=== PATIENT | female | born 1985 | race Caucasian/White ===

== ENCOUNTER 2016-09-13 16:33 | Inpatient (IN) | payer MEDICAID ==
[2016-09-13] MEDS ORDERED: Acetaminophen 325 MG Tab PO PRN (19:20)
[2016-09-13] MEDS ORDERED: Ondansetron 4 MG/2 ML SDV IV PRN (19:20)
[2016-09-13] MEDS ORDERED: Lidocaine 1% 30 ML SDV INJECT PRN (19:20)
[2016-09-13] MEDS ORDERED: Methylergonovine 0.2 MG/1 ML Amp IM PRN (19:20)
[2016-09-13] MEDS ORDERED: Misoprostol 400 MCG (4 X 100 MCG TAB) RECTAL PRN (19:20)
[2016-09-13] MEDS ORDERED: Lactated Ringers 500 ML IV ONE (19:20)
[2016-09-13] MEDS ORDERED: Sodium Chloride 0.9% 10 ML Syringe FLUSH PRN (19:20)
[2016-09-13] MEDS ORDERED: Carboprost Tromethamine 250 MCG/1 ML Amp IM PRN (19:20)
[2016-09-13] MEDS ORDERED: Oxytocin/Normal Saline 30 UNIT/500 ML BAG IV SCH (19:45)
[2016-09-13] MEDS: Lactated Ringers 1,000 ML IV SCH (20:00)
--- NOTE | 2016-09-14 00:29 | PCM.SN ---
- Free Text/Narrative Note: Intrathecal. Sitting position, sterile prep and drape, 1% lidocaine w bicarb for skinwheal to L2 L3 interspace. Introducer, 24 ga pencan x 1. Pos CSF, neg heme, neg parasthesia. 15 mcg pf sufenta, 35 mcg pf fentanyl, 0.4 ml pf ns and 6 mg of 0.75% pf bupivacaine injected aftewr CSF aspiration. Pt to R lateral side. Procedure time 2355 to 0020
[2016-09-14] MEDS: Lactated Ringers 1,000 ML IV SCH ×2 (01:04)
[2016-09-14] MEDS ORDERED: Zolpidem 5 MG Tab PO PRN (04:15)
[2016-09-14] MEDS ORDERED: Simethicone 80 MG Tab.Chew PO PRN (04:15)
[2016-09-14] MEDS ORDERED: Sodium Chloride 0.9% 10 ML Syringe FLUSH PRN (04:15)
[2016-09-14] MEDS ORDERED: Oxytocin 10 Units/1 ML SDV IM PRN (04:15)
[2016-09-14] MEDS ORDERED: Benzocaine/Menthol 20%-0.5% Spray 56 GM Canister TOP PRN (04:15)
[2016-09-14] MEDS ORDERED: Measles, Mumps & Rubella Vaccine 0.5 ML SDV SUBCUT ONE (04:15)
--- NOTE | 2016-09-14 09:15 | HP ---
PATIENT IDENTIFICATION: Galina Bethea is a 31-year-old, G3, P1-1-0-2 intrauterine 37-4/7 weeks by 6-5/7-week ultrasound, who presents with contractions. HISTORY OF PRESENT ILLNESS: Patient's contractions started at approximately 4:30-5:00 p.m. on date of admit, increasing in frequency and intensity to the point that they are felt every 2 minutes at their closest, rated 8/10, felt in the lower abdomen and radiating to the back. They seem to be getting worse over time. Nothing seems to make them better. She denies any headaches, visual changes, or upper abdominal pain. To put this in context, she is GBS negative, has had a history of labor and delivery as well as gestational thrombocytopenia during this . Records were called for and reviewed as below and supplemented by patient history. OBSTETRICS HISTORY: 1. On 11/02/2012, delivered at 36-5/7 weeks, labor, yielding a male weighing 2530 g. 2. On 12/07/2011, at 39 weeks, delivered 2722 g male, spontaneous vaginal delivery with thrombocytopenia complicating this . ANTEPARTUM LABS: ABO blood type O positive, negative antibody. Rubella equivocal/nonimmune. RPR nonreactive. Negative hepatitis B surface antigen. Negative HIV, GC, chlamydia, hep C, with 1 hour GTT being 200 on 08/01/2016, with 3-hour testing being negative for gestational diabetes mellitus. Quad screen was felt to be within normal limits with a risk of Down syndrome being 1/820. GBS was negative on 08/28/2016, with platelets the same day being 180,000. ALLERGIES: Listed as none. MEDICATIONS: Supposed to be on vitamins. PAST MEDICAL/PAST SURGICAL HISTORY: Reviewed and remarkable for wisdom teeth extraction. Cervical dysplasia with HSIL in 2006, headaches in the past, ankle fracture in the past. Currently smoking. History of chickenpox in the past with blood type O positive with depression in the past and history of Mirena IUD back in 2012, not present during this . FAMILY HISTORY: Paternal grandfather and father with diabetes. Heart defect in mother with aortic valve replaced. Hypertension in father. SOCIAL HISTORY: They live in [place] in a house. She has worked at [employer] in the past during the day shift with her significant other, Chucho Haro, since 2008. They live together and parent their 2 sons together. No alcohol use. Unsure LMP. No drug use. REVIEW OF SYSTEMS: Negative for headaches, visual changes, or upper abdominal pain. Otherwise, reviewed and felt to be noncontributory. Please see nurse's notes as well. OBJECTIVE: Vital Signs: Initial blood pressure 137/91 with a heart rate 80, temperature 98.6, recheck blood pressure is 129/88 with a heart rate of 88 and she just had a recent blood pressure with 130s over 80s. Appearance: Female appears stated age, acting appropriate for age, nontoxic appearance. Breathing through contractions, but answering questions appropriately in between. HEENT: Head atraumatic. EOMs intact. PERRLA. No scleral icterus. No obvious otorhinorrhea. Mucous membranes are moist. Patient wearing glasses. Neck: No obvious masses or lesions. Lungs: Clear to auscultation bilaterally. No increased work of breathing. Heart: S1 and S2. Regular rate and rhythm. Abdomen: Gravid, Raul's indeterminate. Nontender. Nondistended. Bowel sounds positive. No organomegaly, pulsatile masses, or obvious are hernias. No rebound or guarding. Monitors applied. : Normal external female genitalia. Normal position and presentation of urethra. Vaginal exam reveals her to be 3 cm, -2 to -3 station. Unsure presentation with bag of water felt, being 60% effaced. No peripheral edema. Deep tendon reflexes 3-4/4 in bilaterally in lower extremities. Psych: Mood and affect congruent. Judgment and insight intact. Skin: No cyanosis, clubbing, or jaundice. LABORATORY DATA: Pending is a CBC, BUN, creatinine, uric acid, AST, ALT, urinalysis with urine protein-creatinine ratio. NST was found to be reactive and reassuring. Tocometer reveals contractions as close as every 2-5 minutes apart. ASSESSMENT AND PLAN: 1. Intrauterine at 37-4/7 weeks by 6-5/7-week ultrasound. 2. Gestational hypertension-suspected. We will rule out preeclampsia with labs. 3. Contractions with cervical change-labor. 4. Unsure presentation. At this point in time, as ultrasound is unavailable, unable to save images, we will order an abdominal x-ray. I did discuss this with the patient pitfalls of using this as well as risks, benefits, alternatives, complications in regard to finding the presentation. She understands and agrees and wished to proceed. 5. Group B Streptococcus negative. 6. Rubella nonimmune. 7. History of gestational thrombocytopenia. Last platelet count was within normal limits. CBC will be drawn today. 8. History of labor and delivery. 9. Impaired glucose tolerance with negative 3 hour GTT. 10. 3, para 1-1-0-2. PLAN: The patient will be admitted due to the above. We will wait the abdominal x-ray and readings for presentation. If vertex, most likely we will continue to follow clinically and closely, may consider amniotomy with further descent of baby and follow clinically and closely thereafter. Also discussed potential for Pitocin or other modifications that may be used. Also did discuss if baby is not vertex, may need to consider section for delivery. The patient understands and agrees with the above treatment plan. [facility] /[id number]
--- NOTE | 2016-09-14 09:35 | PN ---
DATE: 09/13/2016 SUBJECTIVE: The patient's contractions are getting worse, they are now 7 to 8/10, felt in the abdomen and lower back. Pitocin was started and stopped shortly thereafter due to some concerns with heart tones. OBJECTIVE: Currently, heart tones are in the 130 to 135 range with great acceleration noted with vaginal exam. Tocometer reveals contractions every 2 to 5 minutes apart. Vaginal exam reveals her to be 5 cm, 80% effaced, -1 to -2 station, vertex suspected, bag of water felt. Abdominal x-ray did reveal suspected vertex presentation as well. ASSESSMENT AND PLAN: Intrauterine at 37-1/2 weeks complicated by gestational hypertension versus preeclampsia. Labs done with unsure presentation initially. Now by exam, reveals suspected vertex and abdominal x- ray confirms this. Initially, there was some nonreassuring status per nurse with some occasional late decelerations. Pitocin was stopped. IV fluids were started. Position changes were instituted as well as oxygen started. Resolution of these are noted currently at the time of dictation. PLAN: I did discuss with the patient following very closely with continuous monitoring at this point in time. I would consider re-evaluation in 1 to 2 hours. If there are no concerns, then consider amniotomy at that time if there is any evidence of no progression of labor. Otherwise, we will continue to follow clinically and closely. The patient understands and agrees with the above treatment plan. [facility] /[id number]
[2016-09-14] MEDS: Prenatal Multivitamin with Calcium/Folic Acid/Iron Tab PO SCH (09:40)
[2016-09-14] MEDS: Docusate Sodium 100 MG Cap PO PRN ×2 (09:40→20:13)
--- NOTE | 2016-09-14 09:44 | PN ---
DATE: 09/14/2016 SUBJECTIVE: The patient is pain free after status post intrathecal. OBJECTIVE: heart tones have been in the 135 to 140 range, felt to be reassuring. Tocometer reveals contractions every 2 to 5 minutes. Vaginal exam reveals to be 5 cm, 85% effaced, -1 station, vertex suspected. Artificial rupture of membranes done after discussion with the patient yielding copious amounts of clear fluid. LABORATORY DATA: Labs returned. Platelet count is notable to be 125,000. Urine yoaakbk-[id number] ratio at 0.6. ASSESSMENT AND PLAN: Intrauterine at 37-4/7 weeks by 6-5/7 weeks ultrasound, complicated by now newly diagnosed preeclampsia with mild thrombocytopenia but not in the severe range, status post intrathecal as well as Pitocin augmentation that was used minimally on 09/13/2016, and stopped after concerns with heart tones. PLAN: We will continue to follow maternal status closely. May need to augment with Pitocin based on maternal status and cervical change and contraction pattern. This was discussed with the patient. We will continue to follow clinically and closely. Otherwise, no signs or symptoms of severe preeclampsia elicited at the current time of dictation. [facility] /[id number]
--- NOTE | 2016-09-14 10:23 | DEL ---
DATE: 09/14/2016 PREOPERATIVE DIAGNOSES: 1. Intrauterine at 37-5/7 weeks by 6-5/7 weeks' ultrasound. 2. Preeclampsia. 3. Contractions with cervical change-labor. 4. Unsure presentation, requiring abdominal x-ray as ultrasound unavailable. 5. Group B Streptococcus negative. 6. Rubella nonimmune. 7. Gestational thrombocytopenia with platelets of 125,000 upon admit. 8. Impaired glucose tolerance. 9. History of labor and delivery. 10.History of gestational thrombocytopenia with previous delivery. 11. 3, para 1-1-0-2. POSTOPERATIVE DIAGNOSES: 1. Intrauterine at 37-5/7 weeks by 6-5/7 weeks' ultrasound- delivered. 2. Preeclampsia. 3. Contractions with cervical change-labor. 4. Unsure presentation, requiring abdominal x-ray as ultrasound unavailable. 5. Group B Streptococcus negative. 6. Rubella nonimmune. 7. Gestational thrombocytopenia with platelets of 125,000 upon admit. 8. Impaired glucose tolerance. 9. History of labor and delivery. 10.History of gestational thrombocytopenia with previous delivery. 11. 3, para 1-1-0-2. 12.Left occiput presentation with left hand by right cheek. PROCEDURE PERFORMED: NST and Pitocin augmentation on 09/13/2016, followed by continued Pitocin augmentation, artificial rupture of membranes and spontaneous vaginal delivery on 09/14/2016. ANESTHESIA/ANALGESIA: The patient did receive an intrathecal in the first stage of labor. ESTIMATED BLOOD LOSS: 350 mL. FINDINGS: Male, scores 9 and 9, weight pending. SUMMARY OF EVENTS: The patient is a 31-year-old, G3, P1-1-0-2, intrauterine at 37-4/7 weeks upon admission, had gestational hypertension with labs revealing that she had preeclampsia thereafter with thrombocytopenia with platelets of 125,000. She underwent the above procedures, required some minimal Pitocin augmentation, had some nonreassuring status. This was stopped. IV fluids and oxygen and position changes ensued with improvement in heart tones. Subsequently, the patient received an intrathecal shortly thereafter, had artificial rupture membranes as she had a protracted disorder dilation at that time. She was checked serially by nurses and had protracted disorder of dilation being around 5-6 cm, subsequently Pitocin was called for and started again. She subsequently rapidly progressed into the second stage of labor, I was called to the room. I, Raj Markhamman, then donned sterile gown and gloves upon arrival into the room. Subsequently, the patient pushed with contractions, vertex was delivered in a JODI presentation with left hand by right cheek. The rest of the infant followed with delivery thereafter without difficulty. Mouth and nares were suctioned. Cord was doubly clamped and cut, and infant was resuscitated on mother's abdomen. Then, approximately 10 cc of cord blood was obtained for labs. Placenta then delivered with gentle cord traction and fundal massage. Pitocin was started per protocol. Perineum, vagina, and perirectal areas were then examined without any tears or lacerations. Mother and infant are currently stable at the time of dictation. [facility] /[id number]
--- NOTE | 2016-09-14 10:32 | OBOUT ---
DATE: 09/13/2016 DATE AND TIME OF NST: DATE: 09/13/2016 TIME: 1704 to 1724. REASON FOR NST: 1. Intrauterine at 37-4/7 weeks by 6-5/7 weeks' ultrasound. 2. Gestational hypertension. 3. Contractions with cervical change-labor suspected. 4. Unsure presentation. 5. Group B Streptococcus negative. 6. Rubella nonimmune. 7. History of gestational thrombocytopenia. 8. History of labor and delivery. 9. 3, para 1-1-0-2. NST INTERPRETATION: During this time period, heart tone baseline is approximately 145-150 and there are at least two 15 x 15 beat per minute accelerations, making this strip reactive. It is also noted to be reassuring. Tocometer reveals potential of 8-9 contractions during this time period felt by patient. ASSESSMENT/PLAN: 1. Non-stress test-reactive and reassuring. 2. Tocometer with contractions. PLAN: Patient was watched for approximately 2 hours after this NST was performed, as she had some elevated blood pressures upon admission. She continued to have some minimally elevated blood pressures occasionally and intermittently with contractions continuing. She did have some noted cervical change being 3 cm, 60% effaced, -2 to -3 station with unsure presentation. Subsequently, as ultrasound is not available today, abdominal x-ray has been called for. I did discuss with patient the risks, benefits, alternatives, complications with use of this procedure to evaluate for presentation and pitfalls were also discussed. We will check this x-ray for presentation and admit the patient due to her gestational hypertension suspected with history of thrombocytopenia as well as history of labor and delivery with contractions with cervical change being at 37-4/7 weeks. The patient understands and agrees with the above treatment plan. Please see admit history and physical for further details. [facility] /[id number]
[2016-09-14] MEDS: Ibuprofen 800 MG Tab PO PRN ×2 (11:11→20:13)
[2016-09-14] MEDS ORDERED: fentaNYL 100 MCG/2 ML SDV IV ONE (12:49)
[2016-09-14] MEDS: Acetaminophen/oxyCODONE 325-5 MG Tab PO PRN (20:13)
[2016-09-15] MEDS: Acetaminophen/oxyCODONE 325-5 MG Tab PO PRN ×2 (00:05→04:24)
[2016-09-15] MEDS: Ibuprofen 800 MG Tab PO PRN (04:23)
[2016-09-15] MEDS: Docusate Sodium 100 MG Cap PO PRN (09:00)
[2016-09-15] MEDS: Prenatal Multivitamin with Calcium/Folic Acid/Iron Tab PO SCH (09:00)
[2016-09-15 10:06] VITALS: BP 126/85
--- NOTE | 2016-09-18 08:50 | DISCH ---
ADMISSION DIAGNOSES: 1. Intrauterine at 37-4/7 weeks by 6-5/7 weeks. 2. Preeclampsia. 3. Contractions with cervical change-labor. 4. Unsure presentation, requiring abdominal x-ray as ultrasound was unavailable. 5. Group B Streptococcus negative. 6. Rubella nonimmune. 7. History of gestational thrombocytopenia. 8. History of labor and delivery. 9. Impaired glucose tolerance. 10.Gestational thrombocytopenia with platelets of a 125,000 upon admit. 11. 3, para 1-1-0-2. DISCHARGE DIAGNOSES: 1. Intrauterine at 37-4/7 weeks by 6-5/7 weeks-delivered at 37-5/7 weeks. 2. Preeclampsia. 3. Contractions with cervical change-labor. 4. Unsure presentation, requiring abdominal x-ray as ultrasound was unavailable. 5. Group B Streptococcus negative. 6. Rubella nonimmune. 7. History of gestational thrombocytopenia. 8. History of labor and delivery. 9. Impaired glucose tolerance. 10.Gestational thrombocytopenia with platelets of a 125,000 upon admit. 11. 3, para 1-1-0-2. PROCEDURE PERFORMED: NST, Pitocin augmentation, artificial rupture of membranes, spontaneous vaginal delivery per Dr. Dodd. HISTORY OF PRESENT ILLNESS: Please see H and P. HOSPITAL COURSE: Patient was admitted on the above date with the above diagnoses. As unsure presentation with ultrasound unavailable, underwent an abdominal x-ray, revealed a vertex presentation. Then underwent the above procedures, had a protracted disorder dilation, required amniotomy and Pitocin augmentation. Then went on to have a spontaneous vaginal delivery, yielding a male, scores 9 and 9, with a weight of 6 pounds 8 ounces, which would be 2940 g. Please see delivery note for further details. day #1, date of discharge, the patient was tolerating p.o., ambulating, urinating, passing flatus, and requesting discharge. Last set of vital updated and listed in the chart: PHYSICAL EXAMINATION: Vital Signs: Temperature 97.4, heart rate 79, blood pressure 126/82, respiratory rate 16. Lungs: Clear to auscultation bilaterally. Heart: S1 and S2. Regular rate and rhythm. Abdomen: Firm uterus at approximately +2 above umbilicus. No peripheral edema. No calf pain. LABORATORY DATA: Discharge labs reveal white cell count of 11.9, hemoglobin of 11, compared to predelivery 12.6, and platelets of 122,000. CONDITION ON DISCHARGE COMPARED TO CONDITION ON ADMISSION: Improved. DISCHARGE INSTRUCTIONS: 1. Diet as tolerated. 2. Activity, no lifting more than 10 to 15 pounds. No sit-ups, straining, and pelvic rest for the next 6 weeks with immediate return to fertility discussed with the patient. 3. Reasons to return or go to the emergency room was discussed with the patient including, but not limited to, temperature greater than 100.4, foul- smelling discharge, red, hot tender breasts, or increased vaginal bleeding. DISCHARGE MEDICATIONS: Ijfp-[id number] Tylenol or ibuprofen for pain. FOLLOWUP: Follow up on 09/18/2016, with the for recheck of CBC. Did discuss with the patient if she has any headaches, visual changes, or upper abdominal pain or other concerns, to return sooner. The patient understands and agrees with the above treatment plan. Importance of followup and ramifications of not doing so were discussed with the patient. [facility] /[id number]
== END 2016-09-15 12:50 | disposition home or self-care (01) | DRG 775 ==
LOC: DL.OBCHECK 16:33 → DL.OB 19:27 → OBSVTOIN 09-14 03:55
PROVIDERS: ADMIT Family Medicine; ATTEND Family Medicine
PROC: 10E0XZZ Delivery of Products of Conception, External Approach (ICD-10-PCS; principal; 2016-09-14)
PROC: 10907ZC Drainage of Amniotic Fluid, Therapeutic from Products of Conception, Via Natural or Artificial Opening (ICD-10-PCS; 2016-09-14)
PROC: 00HU33Z Insertion of Infusion Device into Spinal Canal, Percutaneous Approach (ICD-10-PCS; 2016-09-14)
PROC: 3E0R3CZ (ICD-10-PCS; 2016-09-14)
DX: O14.14 Severe pre-eclampsia complicating childbirth (principal); O99.12 Other diseases of the blood and blood-forming organs and certain disorders involving the immune mechanism complicating childbirth; O99.814 Abnormal glucose complicating childbirth; O13.4 Gestational [pregnancy-induced] hypertension without significant proteinuria, complicating childbirth; R73.02 Impaired glucose tolerance (oral); O76 Abnormality in fetal heart rate and rhythm complicating labor and delivery; Z3A.38 38 weeks gestation of pregnancy; Z37.0 Single live birth
CPT/HCPCS: 01967; 36415; 51701; 59025; 74000; 81001; 82565; 82570; 84156; 84450; 84460; 84520; 84550; 85027; 90707; A9270-GY; J2405; J2590; J3010; J7120

== ENCOUNTER 2017-09-23 20:26 | Inpatient (IN) | payer MEDICAID ==
[2017-09-23] MEDS ORDERED: Lidocaine 1% 30 ML SDV INJECT PRN (22:55)
[2017-09-23] MEDS ORDERED: Acetaminophen 325 MG Tab PO PRN (22:55)
[2017-09-23] MEDS ORDERED: Methylergonovine 0.2 MG/1 ML Amp IM PRN (22:55)
[2017-09-23] MEDS ORDERED: Misoprostol 400 MCG (4 X 100 MCG TAB) RECTAL PRN (22:55)
[2017-09-23] MEDS ORDERED: Sodium Chloride 0.9% 10 ML Syringe FLUSH PRN (22:55)
[2017-09-23] MEDS ORDERED: Lactated Ringers 500 ML IV ONE (22:55)
[2017-09-23] MEDS ORDERED: Tranexamic Acid 1,000 MG in Sodium Chloride 0.9% 100 ML IV PRN (22:55)
[2017-09-23] MEDS ORDERED: Carboprost Tromethamine 250 MCG/1 ML Amp IM PRN (22:55)
[2017-09-23] MEDS ORDERED: Oxytocin/Normal Saline 30 UNIT/500 ML BAG IV SCH (23:00)
--- NOTE | 2017-09-24 00:01 | OBOUT ---
DATE: 09/23/2017 INDICATION FOR NST: The patient presents with possible onset of labor. REPORT: Baseline heart rate 130 beats per minute. Moderate ufqa-hn-ozdf variability. Accelerations are noted. [place] showing irregular contractions averaging every 3 minutes. INTERPRETATION: Category 1 reassuring and reactive NST. [facility] /[id number]
--- NOTE | 2017-09-24 00:31 | HP ---
CHIEF COMPLAINT: Increased contractions. HISTORY OF PRESENT ILLNESS: A 32-year-old 4, para 2-1-0-3, currently at 37 and 6/7 weeks' gestation, presents to Labor and Delivery reporting active labor. She has had some slightly irregular contractions at home and passed some blood when she went to the bathroom. No other leakage of fluid. Contractions have been getting a little stronger and closer together. No other acute concerns. No blurry vision. She has had some mild headaches, but also has a history of migraines and these headaches are not atypical. No shortness of breath or chest pain. No right upper quadrant pain, no swelling. No recent diarrhea or constipation. No fever or chills. No recent symptoms of infection. OBSTETRICAL HISTORY: Blood type O positive, rubella immune, group B Strep negative, syphilis nonreactive. Urine culture negative. Hepatitis B negative. HIV negative. Gonorrhea and Chlamydia negative. TSH normal. Hepatitis C negative. Wet prep positive only for yeast. Glucose tolerance test normal. 1. On 12/07/2011, 39 weeks 0 days' gestation male named Nate, weight 2722 g, score of 8 and 9, mother had thrombocytopenia with that . She was delivered by Dr. Baltazar here in [place]. 2. On 11/02/2012, at 36 weeks 5 days' gestation male named Daniele, weight 2530 g, score of 8 and 9, delivered by Dr. Chavez here in [place]. 3. Delivered on 09/14/2016 at 37 weeks 5 days' gestation male infant, named Neetu, weight 2949 g. This complicated again by thrombocytopenia. The patient was delivered here in [place] and does not recall who the physician was. Reports that she tends to go within 4 hours after artificial rupture of membranes and only needs to push 3 or 4 times. OTHER HISTORY: She has been monitored for gestational thrombocytopenia and it has overall been stable. PIH labs have been previously checked and negative. She smoked throughout the and has a history of depression, otherwise has been unremarkable. PAST MEDICAL HISTORY: Cervical dysplasia, HSIL in 2006, migraine headaches, ankle fracture, chronic smoker, chickenpox as a child. History of depression. History of an IUD. Herniated lumbar discs. PAST SURGICAL HISTORY: [place] teeth extraction. FAMILY HISTORY: Father and paternal grandfather with diabetes. Mother needed an aortic valve replaced. Father has hypertension. Otherwise, family history is unremarkable and mother denies any problems with anesthesia, bleeding, clotting, defects, or chromosomal abnormalities. SOCIAL HISTORY: The patient now stays at home with her 3 children here in [place]. works for [employer]. They do not have any pets at their home. Both she and her smoke outside. is actively trying to quit. The patient is not ready to quit. ALLERGIES: No known drug allergies. MEDICATIONS: vitamin. Other prescribed medications this include Tamiflu and I would assume aeiz-use-gfieqxi Monistat for the yeast infection. REVIEW OF SYSTEMS: Pertinent positives and negatives listed under the history of present illness. No recent skin changes. No new neurological symptoms. Herniated disk symptoms have been stable without any acute change. No dysuria or difficulties with voiding. No diarrhea or constipation. PHYSICAL EXAMINATION: Vital Signs: Temperature is 97.8, pulse 83, blood pressure 120/87, respiratory rate of 16. HEENT: Head is normocephalic and atraumatic. Eyes, ears, nose, mouth are all within normal limits to gross inspection. Heart: Regular without murmur. Lungs: Clear to auscultation bilaterally. Abdomen: Gravid, soft, nontender. Bowel sounds are positive. Genitourinary: The patient presented at 3 cm dilated and is now 4 cm per nurse's exam, initially was 75% effaced and now still 75%. heart tones tracing at 130 beats per minute at baseline, moderate kxud-rg-geqy variability. Accelerations noted. [place] tracing, contractions irregularly, but on average every 3 minutes. Extremities: No edema, erythema, or tenderness noted. LABORATORY DATA: Hemoglobin is 11.4, platelets 157. ASSESSMENT: 1. A 37 and 6/7 weeks' intrauterine in a 4, para 2-1-0-3. The patient in early active labor. 2. Blood type O positive, rubella immune, and group B Strep negative. 3. History of gestational thrombocytopenia, currently doing well. 4. History of labor and delivery. 5. Herniated lumbar disks. 6. Active smoker. 7. History of depression. 8. History of HSIL on Pap smears. 9. Migraine headaches. PLAN: The patient is requested that we hold off on artificial rupture of membranes until after midnight to ensure that the baby is not born prior to the grandfather's birthday which is tomorrow, anticipating intrathecal for pain management. She has successfully delivered babies vaginally in the past, however, understands that the problems or circumstances may change such that primary may become necessary. Questions were answered and they were happy to proceed with the plan. [facility] /[id number] JAIME
[2017-09-24] MEDS: Ondansetron 4 MG/2 ML SDV IV PRN ×2 (04:19→08:32)
[2017-09-24] MEDS ORDERED: EPINEPHrine 1 MG/ML SDV ONE ×2 (04:21→11:15)
[2017-09-24] MEDS ORDERED: fentaNYL 100 MCG/2 ML SDV ONE (04:21)
[2017-09-24] MEDS: Lactated Ringers 1,000 ML IV SCH ×2 (04:38→08:33)
--- NOTE | 2017-09-24 04:59 | PCM.PRNOTE ---
- Free Text/Narrative Note: Requested to provide analgesia to full term patient in severe pain. Upon entering the room, patient is supine in bed complaining of severe abdominal pain and discomfort. Procedure was discussed with patient including adverse outcomes and expectations. Pt consented to analgesia, SAB/IT. Pt placed into a sitting position. Landmarks for SAB/IT were identified and marked. Back was prepped with betadine x3. A sterile, transparent, fenestrated drape was applied. Excess betadine was removed. Using 3 mL of a 1% lidocaine solution, a skin wheel was placed at the L3/L4 interspace. A 24 ga (4 inch) Pencan spinal needle was inserted until positive for CSF. Negative for heme or paresthesias. Injected fentanyl 20 mcg, sufentanil 10 mcg, and 10 mg of a 0.75% bupivacaine solution with an epi wash. Pt was placed left lateral position for approximately 20 minutes. There were zero complications or adverse outcomes. Will continue to monitor.
--- NOTE | 2017-09-24 08:55 | PN ---
DATE: 09/24/2017 SUBJECTIVE: The patient is starting to feel her contractions again. She has had an intrathecal that was placed when she was 5 to 6 cm dilated, and unfortunately, things got quite busy on the Labor and Delivery unit as the patient's contractions had spaced out after her intrathecal, which was also after having had artificial rupture of membranes, approximately a liter of clear amniotic fluid returned. However, Pitocin could not be initiated due to insufficient staffing. OBJECTIVE: Vital Signs: Blood pressure 106/62 and pulse of 70. General: Overall is starting to complain more of the contraction pain more so on the right side. We had her with an IUPC in place and inadequate MVUs, Pitocin was started as soon as we could, which was around 6:00 in the morning and we were increasing as able. Pelvic: Rechecked her cervix. The baby remains about -3. Head is presenting, however does seem to be a little bit more off to the maternal right side. I will try to get baby repositioned, and now we will change the mother's position to an upright or squatting position to see if we can get the baby to transition into a better spot. ASSESSMENT: 1. Dysfunctional labor. 2. 4, para 2-1-0-3. 3. History of gestational thrombocytopenia. 4. Herniated disks. 5. Other diagnoses per her admission history and physical. PLAN: At this time, still try to reposition her and increase the Pitocin accordingly, so that we can hopefully have a vaginal delivery. I have discussed with the patient indications, risks, benefits, and alternatives of primary section including, but not limited to, risk of infection and plan for preoperative antibiotics, risk of bleeding to the point of requiring a blood transfusion, risk of injury to internal organs and adjacent structures and how those would be repaired, potential risk of injury to the baby, and even remote risk of complications that could lead to . Her questions have been answered. She would be in agreement to proceed if necessary. Naturally, however, she would like to continue to try attempts at vaginal as she has done quite well with all of her other deliveries. [facility] /[id number] JAIME
--- NOTE | 2017-09-24 08:59 | US ---
Clinical history: 32-year-old female with uncertain presentation and "dysfunctional" labor. Interpretation Limited exam confirms enlarged uterus with a single live ( heart rate 135 bpm) in trauterine gestation, longitudinal lie and cephalic presentation. CONCLUSION: Cephalic presentation.
--- NOTE | 2017-09-24 10:12 | PCM.PRNOTE ---
- Free Text/Narrative Note: Requested to provide analgesia to full term patient in severe pain. Upon entering the room, patient is supine in bed complaining of severe pelvic/ abdominal pain and discomfort. Procedure was quickly discussed with patient including adverse outcomes and expectations, as before. Pt consented to analgesia, SAB/IT. Pt placed into a sitting position. Landmarks for SAB/IT were identified and marked. Back was prepped with betadine x3. A sterile, transparent, fenestrated drape was applied. Excess betadine was removed. Using 3 mL of a 1% lidocaine solution, a skin wheel was placed at the L3/L4 interspace. A 24 ga (4 inch) Pencan spinal needle was inserted until positive for CSF. Negative for heme or paresthesias. Injected fentanyl 20 mcg, sufentanil 10 mcg, and 10 mg of a 0.75% bupivacaine solution with an epi wash. Pt was placed supine with right wedge and immediately felt the need to push. There were zero complications or adverse outcomes. Will continue to monitor.
[2017-09-24] MEDS ORDERED: Oxytocin 10 Units/1 ML SDV IM PRN (10:15)
[2017-09-24] MEDS ORDERED: Benzocaine/Menthol 20%-0.5% Spray 56 GM Canister TOP PRN (10:15)
[2017-09-24] MEDS ORDERED: Simethicone 80 MG Tab.Chew PO PRN (10:15)
[2017-09-24] MEDS ORDERED: Zolpidem 5 MG Tab PO PRN (10:15)
[2017-09-24] MEDS ORDERED: Tranexamic Acid 1,000 MG in Sodium Chloride 0.9% 100 ML IV PRN (10:15)
[2017-09-24] MEDS ORDERED: Carboprost Tromethamine 250 MCG/1 ML Amp IM PRN (10:15)
[2017-09-24] MEDS ORDERED: Acetaminophen 325 MG Tab PO PRN (10:15)
[2017-09-24] MEDS ORDERED: Sodium Chloride 0.9% 10 ML Syringe FLUSH PRN (10:15)
[2017-09-24] MEDS ORDERED: Misoprostol 400 MCG (4 X 100 MCG TAB) RECTAL PRN (10:15)
[2017-09-24] MEDS ORDERED: Docusate Sodium 100 MG Cap PO PRN (10:15)
--- NOTE | 2017-09-24 11:02 | DEL ---
DATE: 09/24/2017 PREPROCEDURE DIAGNOSES: 1. A 38 and 0/7 weeks intrauterine in a 4, para 2-1-0-3. 2. Blood type O positive, rubella immune, group B strep negative. 3. History of gestational thrombocytopenia, currently doing well. 4. History of labor and delivery. 5. Herniated lumbar disk. 6. Active smoker. 7. Artificial rupture of Membranes. POSTPROCEDURE DIAGNOSES: 1. A 38 and 0/7 weeks intrauterine in a 4, para 3-1-0-4. 2. Blood type O positive, rubella immune, group B strep negative. 3. History of gestational thrombocytopenia, currently doing well. 4. History of labor and delivery. 5. Herniated lumbar disk. 6. Artificial rupture of Membranes 7. Active smoker. 8. Viable female over intact perineum. BRIEF HISTORY: This is a 32-year-old female with the above-listed diagnoses, presented to the hospital on September 23, 2017 reporting active labor. She was having irregular contractions at home with no rupture of membranes. The patient had an intrathecal placed when she was 5-6 cm dilated. The patient had artificial rupture of membranes and IUPC. The patient had 2nd intrathecal placed at approximately 8:30 this morning. Ultrasound showed fetus in the LOP position, but confirmed cephalic and not malpresentation. After patient received intrathecal and laid back in bed, she felt the urge to push. PROCEDURE IN DETAIL: With the patient in dorsal lithotomy position, she delivered a viable female in OA position over intact perineum. Infant had 1 nuchal cord that was easily reduced during delivery. Infant was dried and stimulated. Mouth and nose were bulb suctioned. Baby placed on mother's abdomen. After at least 45 second delay, three vessel umbilical cord with true knot was doubly clamped, father of the baby cut the cord. Cord blood sample was obtained. Mother was not having pain relief from second intrathecal, Pitocin running for uterine contraction for placenta delivery. Labia and vagina were inspected and there were 2 small abrasions on the anterior vaginal wall. No lacerations requiring sutures. Placenta and one large clot was delivered with minimal fundal massage, found to be intact with large calcifications. IV Pitocin was running during the delivery of the placenta. ESTIMATED BLOOD LOSS: 300 mL. COMPLICATIONS: None. FINDINGS: Viable female , scores of 8 and 9. weight 2515 g, 5 pounds 9 ounces. DISPOSITION: Mother and baby stay in the room at this time. Mother will be starting to breastfeed. Procedure performed under my direct supervision. Agree with note as scribed on my behalf by Mary Doty [email or web address]. -[facility] 09/24/17 1601. [facility] /[id number] MTDD
[2017-09-24] MEDS ORDERED: Lidocaine 1% 30 ML SDV INJECT ONE (11:15)
[2017-09-24] MEDS ORDERED: fentaNYL 100 MCG/2 ML SDV ITHECAL ONE (11:15)
[2017-09-24] MEDS ORDERED: Bupivacaine 0.75%/D5W 2 ML Amp INJECT ONE (11:25)
[2017-09-24] MEDS: Ibuprofen 800 MG Tab PO PRN (17:24)
[2017-09-25] MEDS: Ibuprofen 800 MG Tab PO PRN (04:33)
[2017-09-25] MEDS ORDERED: Prenatal Multivitamin with Calcium/Folic Acid/Iron Tab PO SCH (09:00)
[2017-09-25 10:34] VITALS: BP 116/72
[2017-09-25] MEDS ORDERED: Sertraline 50 MG Tab PO SCH (16:00)
== END 2017-09-25 11:00 | disposition home or self-care (01) | DRG 775 ==
LOC: DL.OBCHECK 20:26 → DL.OB 22:26 → OBSVTOIN 09-24 08:49
PROVIDERS: ADMIT Family Medicine; ATTEND Family Medicine
PROC: 10E0XZZ Delivery of Products of Conception, External Approach (ICD-10-PCS; principal; 2017-09-24)
PROC: 10907ZC Drainage of Amniotic Fluid, Therapeutic from Products of Conception, Via Natural or Artificial Opening (ICD-10-PCS; 2017-09-24)
PROC: 00HU33Z Insertion of Infusion Device into Spinal Canal, Percutaneous Approach (ICD-10-PCS; 2017-09-24)
PROC: 3E0R3BZ Introduction of Anesthetic Agent into Spinal Canal, Percutaneous Approach (ICD-10-PCS; 2017-09-24)
DX: O99.12 Other diseases of the blood and blood-forming organs and certain disorders involving the immune mechanism complicating childbirth (principal); O99.334 Smoking (tobacco) complicating childbirth; Z3A.37 37 weeks gestation of pregnancy; Z37.0 Single live birth; O69.81X0 Labor and delivery complicated by cord around neck, without compression, not applicable or unspecified; O75.89 Other specified complications of labor and delivery; M51.26 Other intervertebral disc displacement, lumbar region
CPT/HCPCS: 01967; 36415; 59025; 59409; 76815; 85027; A9270-GY; J0171; J2405; J2590; J3010; J7120